=== PATIENT | male | born 1995 | race Caucasian/White ===

== ENCOUNTER 2016-09-02 21:06 | Emergency (ER) | payer OTHER ==
[~2016-09-02] VITALS: Ht 185.4 cm; Wt 78.3 kg
[2016-09-02 21:10] VITALS: BP 133/82; PULSE 87; TEMP 36.8; O2SAT 100; Ht 185.4 cm; Wt 78.3 kg
[2016-09-02] MEDS ORDERED: XYLOCAINE 1%/SOD BICARB 20 ML VIAL INFIL ONE (21:30)
--- NOTE | 2016-09-02 21:43 | EMERGENCY ROOM VISIT NOTE ---
ED Visit Note First contact with patient: 21:13 CHIEF COMPLAINT: Left Foot laceration HISTORY OF PRESENT ILLNESS: This 21-year-old male presents the ER with chief complaint of a laceration to the top of his left foot. The patient states just prior to arrival he was getting out of the shower and caught the top of his left foot on the corner of the shower door. The patient denies any numbness and tingling in his foot. The patient is able to move his toes without difficulty. The patient states the bleeding has stopped. His tetanus is up-to- date. He does not have any bleeding disorders. REVIEW OF SYSTEMS: 6 system review was performed and was negative unless stated otherwise in history of present illness. PMH: The patient is healthy; appendectomy SOCIAL HISTORY: Patient lives alone. He is a [employer] student. The patient denies any tobacco or alcohol use PHYSICAL EXAM: Vital Signs: Were reviewed Reviewed Nurse's notes. GEN.: 21-year -old male appears in no acute distress. MENTAL Status: Alert and oriented 3. LEFT FOOT: There is a 4 cm long laceration on the dorsal aspect of the foot. The edges are gaping apart. There is no foreign material in the wound and it looks clean. There is no active bleeding. No deep structures such as tendons or nerves are seen in the base of the wound. EMERGENCY DEPARTMENT COURSE: Wound Repair: Complexity: Basic. Verbal consent was obtained after the risks and benefits were explained, including but not limited to bleeding, scarring, infection, pain, and bone/joint /nerve damage. The skin was prepped with betadine and a sterile field set. The wound was anesthetized with 4.8 ml of 1% buffered lidocaine. With direct pressure the bleeding subsided. Copious irrigation was performed using sterile saline. The wound was explored for foreign bodies and none found. Debridement was not performed. The wound edges were approximated using 5-0 Ethilon with 8 simple interrupted sutures. Hemostasis and excellent approximation was achieved. Antibacterial ointment and a sterile dressing applied. Detailed wound care instructions and signs and symptoms of infection reviewed with the patient. No complications and the patient tolerated the procedure well. DIAGNOSIS: 4 cm left Foot laceration DISCHARGE INSTRUCTIONS & TREATMENT: Keep wound clean and dry. No water on the area for 12-24 hrs then no soaking until sutures removed. Do not allow any crusting or dried blood to accumulate on sutures. If this occurs, use a 1:1 solution of hydrogen peroxide/water on a Q-tip to clean the wound. Use an antibiotic ointment for 3-4 days, then let wound dry. Suture removal in 10 days. Follow up sooner for any signs of infection (increasing redness, swelling , drainage). Ice and elevate for swelling and pain. Tylenol 650 mg every 6 hrs for pain. Keep covered when in sun until sutures removed then SPF 50 or higher for one year. Vitamin E oil if desired two weeks after suture removal for reduction of scar. Allergies Coded Allergies: No Known Allergies (Unverified , 08/17/14) Vital Signs Date Time Temp Pulse Resp B/P Pulse Ox O2 Delivery O2 Flow Rate FiO2 09/02/16 21:10 36.8 87 16 133/82 100 Departure Information Referrals [facility] (PCP) Patient Instructions My [facility]
[2016-09-02] MEDS ORDERED: ACETTAB19 PO (21:50)
== END 2016-09-02 21:55 | disposition home or self-care (01) ==
LOC: C.EDB 21:07 → C.EDD 21:55
DX: S91.312A Laceration without foreign body, left foot, initial encounter (principal); W22.8XXA Striking against or struck by other objects, initial encounter

== ENCOUNTER 2016-09-15 22:20 | Emergency (ER) | payer OTHER ==
[~2016-09-15] VITALS: Ht 185.4 cm; Wt 90.4 kg
[~2016-09-15 22:20] MED LIST: ACETTAB19 PO
[2016-09-15 22:23] VITALS: BP 142/79; PULSE 75; TEMP 36.7; O2SAT 98; Ht 185.4 cm; Wt 90.4 kg
--- NOTE | 2016-09-15 23:42 | EMERGENCY ROOM VISIT NOTE ---
ED Visit Note First contact with patient: 22:33 CHIEF COMPLAINT: Suture removal This patient returns to the ED today for removal of sutures that were placed 13 days ago. There has been no swelling, redness, or drainage from the wound. The patient feels like the laceration is healing well. REVIEW OF SYSTEMS: Head: No headache, injury or neck pain. Skin: No rash, new lesions, or masses. General: No fever or chills, fatigue, loss of appetite , or significant recent weight gain or loss. PMH: Electronic medical records are reviewed and summarized as above/below. See Problem List. SOCIAL HISTORY: Patient lives at home. PHYSICAL EXAM: Vital Signs: Reviewed Nurse's notes. There is a sutured wound on the dorsum of the left foot with no signs of infection. There is no erythema , swelling, or tenderness. EMERGENCY DEPARTMENT COURSE: The sutures were removed without any difficulty and there was no separation of the wound edges. Current/Historical Medications Scheduled Acetaminophen-Aspirin Buffered (Excedrin Back & Body), 1 TAB PO BID Allergies Coded Allergies: No Known Allergies (Unverified , 08/17/14) Vital Signs Date Time Temp Pulse Resp B/P Pulse Ox O2 Delivery O2 Flow Rate FiO2 09/15/16 22:23 36.7 75 18 142/79 98 Room Air Departure Information Impression Primary Impression: Encounter for removal of sutures Dispostion Home / Self-Care Condition GOOD Referrals [facility] (PCP) Forms HOME CARE DOCUMENTATION FORM, IMPORTANT VISIT INFORMATION Patient Instructions My [facility]
== END 2016-09-15 22:45 | disposition home or self-care (01) ==
LOC: C.EDB 22:21 → C.EDC 22:45
DX: S91.312A Laceration without foreign body, left foot, initial encounter (principal); W22.8XXA Striking against or struck by other objects, initial encounter